=== PATIENT | female | born 1955 | race Caucasian/White ===

== ENCOUNTER 2023-02-17 13:55 | Emergency (ER) | payer MEDICARE, MEDICAID ==
[2023-02-17] MEDS ORDERED: Sodium Chloride 0.9% 10 ML Syringe FLUSH PRN (14:06)
[2023-02-17] MEDS ORDERED: HYDROmorphone 1 MG/ML Syringe IVPUSH ONE (14:06)
[2023-02-17] MEDS ORDERED: Propofol 200 MG/20 ML SDV IVPUSH ONE (14:31)
[2023-02-17] MEDS ORDERED: Ondansetron 4 MG/2 ML SDV IVPUSH ONE (14:32)
[2023-02-17] MEDS ORDERED: Sodium Chloride 0.9% 1,000 ML IV ONE (14:33)
== END 2023-02-17 16:21 | disposition home or self-care (01) ==
LOC: JD.ED 13:55
DX: S43.015A Anterior dislocation of left humerus, initial encounter (principal); Z91.030 Bee allergy status; Z88.0 Allergy status to penicillin; Z91.013 Allergy to seafood; V80.010A Animal-rider injured by fall from or being thrown from horse in noncollision accident, initial encounter
CPT/HCPCS: 23650; 73030; 96374; 96375; 99283; J1170; J2405; J2704; J3490; J7030; 23655; 99284